=== PATIENT | male | born 1980 | race Caucasian/White ===

== ENCOUNTER 2018-01-18 12:23 | Emergency (ER) | payer OTHER ==
[2018-01-18 12:29] VITALS: BMI 25.8
--- NOTE | 2018-01-18 12:32 | ED PDOC ---
Arrival/HPI - General Time Seen by Provider: 01/18/18 12:29 Historian: Patient - History of Present Illness Narrative History of Present Illness (Text): 01/18/18 12:29 37 y/o male, no significant pmh, nkda, last tetanus under 5 years ago, c/o lt. foot 1st digit great toe injury x 1 hour. Pt. stated that he was trying to move a couch in the hospital, entire couch accidentally smashed on to the lt. foot 1st great toe, had blood initially, no numbness or tingling, no night sweat , no rash, no dizziness, no palpitation, no other medical or psychological complaints. Past Medical History - Provider Review Nursing Documentation Reviewed: Yes Family/Social History - Physician Review Nursing Documentation Reviewed: Yes Family/Social History: Unknown Family HX Allergies/Home Meds Allergies/Adverse Reactions: Allergies No Known Allergies Allergy (Verified 01/18/18 12:29) Home Medications: Home Meds Medication Instructions Recorded Confirmed Albuterol HFA [Ventolin HFA 90 2 puff IH Q6H PRN 01/18/18 01/18/18 mcg/actuation (8 g)] Amphetamine Salt Combination 1 tab PO TID 01/18/18 01/18/18 [Adderall] Review of Systems - Review of Systems Constitutional: absent: Fatigue, Fevers Respiratory: absent: Cough Cardiovascular: absent: Chest Pain Gastrointestinal: absent: Abdominal Pain, Diarrhea, Nausea, Vomiting Musculoskeletal: Arthralgias Psychiatric: absent: Anxiety, Depression Physical Exam Vital Signs Temp Pulse Resp BP Pulse Ox 01/18/18 13:11 76 18 128/76 98 01/18/18 12:33 98.4 F 87 18 133/77 97 Pain Distress: Mild - Systems Exam Head: Present: Atraumatic, Normocephalic Extroacular Muscles: Present: EOMI Conjunctiva: Present: Normal Mouth: Present: Moist Mucous Membranes Neck: Present: Normal Range of Motion Respiratory/Chest: Present: Clear to Auscultation, Good Air Exchange. No: Respiratory Distress, Accessory Muscle Use Cardiovascular: Present: Regular Rate and Rhythm, Normal S1, S2. No: Murmurs Abdomen: No: Tenderness, Distention, Peritoneal Signs Lower Extremity: Present: Normal Inspection, Other (Lt. foot: +ttp on the 1st digit great toe distally with no obvious accumulation of subungal hematoma, no laceration or abrasion, FROM without limitation, sensation intact, motor 5/5, + DPPT pulses, capillary refill< 2 seconds, neurovascular intact. ). No: Edema Neurological: Present: GCS=15, CN II-XII Intact, Speech Normal Skin: Present: Warm, Dry, Normal Color. No: Rashes Psychiatric: Present: Alert, Oriented x 3, Normal Insight, Normal Concentration Medical Decision Making ED Course and Treatment: 01/18/18 12:33 -Motrin -xray 01/18/18 13:04 -Lt. foot xray show no fracture or dislocation -There is no indication for any subungal hematoma at this time, advised ice pack /open toe shoe (post op shoe) and cane ordered for him, he would need to follow up with employee health. 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 - RAD Interpretation Radiology Orders: 01/18/18 12:31 FOOT LEFT GREAT TOE ROUTINE [RAD] Stat Date of service: 01/18/2018 PROCEDURE: Left Foot and great toe Radiographs. HISTORY: smashing injury, r/o fracture/dislocation COMPARISON: None. FINDINGS: BONES: Normal. No fracture. JOINTS: Normal. SOFT TISSUES: Normal. OTHER FINDINGS: None. 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 Disposition/Present on Arrival - Present on Arrival Any Indicators Present on Arrival: No History of DVT/PE: No History of Uncontrolled Diabetes: No Urinary Catheter: No History of Decub. Ulcer: No - Disposition Have Diagnosis and Disposition been Completed?: Yes Diagnosis: Toe injury, Toe contusion Disposition: HOME/ ROUTINE Disposition Time: 13:06 Patient Plan: Discharge Condition: GOOD Additional Instructions: -Discharge home with cane, post op shoe, motrin, ice pack, avoid excessive walking and standing, follow up with your own pmd and site leasing agent/employee health in 24-48 hours, return to the ER for any new or worsening signs or symptoms. Prescriptions: Ibuprofen [Motrin] 600 mg PO QID #30 tab Referrals: Eleazar Hanson MD [Primary Care Provider] - Follow up with primary Alonso Hong MD [Doctor Podiatric Medicine] - Follow up with primary Forms: WORK NOTE
[2018-01-18 12:33] VITALS: RESP 18; TEMP 98.4
[2018-01-18 13:12] VITALS: BP 128/76; PULSE 76; O2SAT 98
--- NOTE | 2018-01-18 13:43 | RAD ---
Date of service: 01/18/2018 PROCEDURE: Left Foot and great toe Radiographs. HISTORY: smashing injury, r/o fracture/dislocation COMPARISON: None. FINDINGS: BONES: Normal. No fracture. JOINTS: Normal. SOFT TISSUES: Normal. OTHER FINDINGS: None. IMPRESSION: Negative study
== END 2018-01-18 13:11 | disposition home or self-care (01) ==
LOC: ED 12:23
DX: S90.112A Contusion of left great toe without damage to nail, initial encounter (principal); W22.8XXA Striking against or struck by other objects, initial encounter; Y92.238 Other place in hospital as the place of occurrence of the external cause; Y99.0 Civilian activity done for income or pay